=== PATIENT | female | born 1980 | race Caucasian/White ===

== ENCOUNTER 2016-12-29 03:55 | Inpatient (IN) | payer MEDICARE ==
[~2016-12-29] VITALS: Ht 160 cm; Wt 70.9 kg
[2016-12-29] MEDS ORDERED: NEURONTIN 400400 MG PO (05:44)
[2016-12-29 06:57] LABS: HEMOGLOBIN 7.1 gm/dl (12.3-15.3); RED BLOOD COUNT 3.12 M/UL (4.00-5.10); WHITE BLOOD COUNT 6.3 K/UL (4.5-11.0)
[2016-12-29 11:18] LABS: HEMOGLOBIN 7.2 gm/dl (12.3-15.3); RED BLOOD COUNT 3.14 M/UL (4.00-5.10); WHITE BLOOD COUNT 6.6 K/UL (4.5-11.0)
[2016-12-30 08:20] LABS: HEMOGLOBIN 7.5 gm/dl (12.3-15.3); RED BLOOD COUNT 3.28 M/UL (4.00-5.10)
[2016-12-30 08:22] LABS: BUN/CREATININE RATIO 27 (0-10)
== END 2016-12-30 19:45 | disposition left against medical advice (07) | DRG 193 ==
LOC: MED SURG 4 04:39
PROVIDERS: Internal Medicine; Internal Medicine Hematology & Oncology; ADMIT Internal Medicine
DX: J18.9 Pneumonia, unspecified organism (principal); J96.01 Acute respiratory failure with hypoxia; F19.10 Other psychoactive substance abuse, uncomplicated; R16.2 Hepatomegaly with splenomegaly, not elsewhere classified; K59.00 Constipation, unspecified; E03.9 Hypothyroidism, unspecified; F17.210 Nicotine dependence, cigarettes, uncomplicated; G89.29 Other chronic pain; L73.2 Hidradenitis suppurativa; D50.9 Iron deficiency anemia, unspecified; Z88.8 Allergy status to other drugs, medicaments and biological substances
CPT/HCPCS: 36415; 36600; 71010; 80053; 82272; 82607; 82728; 82746; 82803; 83010; 83540; 83550; 83615; 83883; 84439; 84443; 85025; 85027; 85045; 86140; 86334; 86403; 86850; 86870; 86880; 86900; 86901; 86902; 86905; 86920; 86922; 87040; J0696; J2270; J2550; J7050